=== PATIENT | female | born 1960 | race Caucasian/White ===

== ENCOUNTER 2019-03-08 07:52 | Day surgery (SDC) | payer MEDICAID ==
[2019-02-19 08:39] VITALS: BP 148/75; PULSE 105
[2019-03-08] VITALS (10 sets, daily range): BP systolic 102–134; BP diastolic 60–95; PULSE 57–71; TEMP 97.3–98
[~2019-03-08] VITALS: Ht 170.2 cm; Wt 45.9 kg
[2019-03-08 08:29] LABS: HEMATOCRIT 37.2 % (37.0-47.0); HEMOGLOBIN 12.1 g/dl (12.5-16.0); MEAN CELL VOLUME 96 fl (80.0-100.0); MEAN CORPUSCULAR HEMOGLOBIN 31 pg (27.0-31.0); MEAN CORPUSCULAR HGB CONC 33 g/dl (33.0-37.0); PLATELET COUNT 319 K/mm3 (130-400); RED BLOOD COUNT 3.87 M/mm3 (4.10-5.30); REDCELL DISTRIBUTION WIDTH-CV 13.9 % (11.5-14.5)
[2019-03-08 08:34] LABS: PROTHROMBIN TIME 11.1 SECONDS (9.7-12.8)
[2019-03-08 08:41] LABS: CALCIUM 10.2 mg/dL (8.4-10.2); CREATININE, serum 0.81 (0.52-1.25); POTASSIUM 4.4 mmol/L (3.4-5.0)
[2019-03-08] MEDS ORDERED: ASPIRIN E.C. 8181 MG PO (09:49)
[2019-03-08] MEDS ORDERED: COLACE 100100 MG/CAP PO (09:50)
[2019-03-08] MEDS ORDERED: MELATIN 3 MG-11 TAB PO (09:51)
[2019-03-08] MEDS ORDERED: PEPCID 20MG TAB20 MG PO (09:51)
[2019-03-08] MEDS ORDERED: PRISTIQ100 MG PO (09:52)
[2019-03-08] MEDS ORDERED: THERA1 TAB PO (09:54)
[2019-03-08] MEDS ORDERED: LAMICTAL150 MG PO (09:54)
[2019-03-08] MEDS ORDERED: ATIVAN 1MG T1 MG/TAB PO (10:07)
[2019-03-08] MEDS ORDERED: SEROQUEL 1100 MG/TAB PO (10:09)
[2019-03-08] MEDS ORDERED: TYLENOL 8 HR PO (10:11)
[2019-03-08] MEDS ORDERED: BUSPAR10 MG PO (10:12)
--- NOTE | 2019-03-08 10:12 | NUR ---
SISTER VERBALIZED UNCERTAINITY WITH THE ABLASION BEING COMPLETED Scar MCDANIELS RN. NURSE SPOKE WITH DR. EDMONDSON REGARDING THESE CONCERNS. I DISCUSSED OPTIONS WITH THE SISTER TO RECEIVE A SECOND OPINION. WE ALSO DISCUSS COMPLICATIONS AND THE RISK OF THE PROCEDURE NOT BEING SUCCESSFUL. THE SISTER MORAIMA VERBALIZED SHE UNDERSTAND ALL THE RISK AND BENEFITS AND THAT SHE WISHES TO CONTINUE WITH THE PROCEDURE. SHE IS AWARE OF RISKS OF NOT MOVING FORWARD WITH ANY PROCEDURES AND SHE MAY LOSS HER LEG. MORAIMA ALSO VERBALIZED THE PATIENT IS IN PAIN AND WANTS HER TO GET WELL. SHE WISHES TO PROCEED WITH THE PLAN OF THE ABLASION, Scar MCDANIELS RN WAS PRESENT WITH THIS DISCUSSION.
[2019-03-08] MEDS ORDERED: MIRALAX PA17 GM/Dose PO (10:58)
--- NOTE | 2019-03-08 15:45 | NUR ---
Back from PACU. Answer "uh huh" when asked a question but does not want to open eyes. VSS. Dressing to left leg soft roll and coban CD&I.
--- NOTE | 2019-03-08 16:45 | NUR ---
This RN took verbal and bedside report from [facility] in [facility] Unit.
--- NOTE | 2019-03-08 17:00 | NUR ---
Sister, Sabrina, at bedside.
--- NOTE | 2019-03-08 18:00 | NUR ---
Applied mouth moisturizer to mouth with swab. Pt drinking water with no N/V. Wash cloth applied to face to assist with awakening the pt up more.
--- NOTE | 2019-03-08 18:30 | NUR ---
Mouth moisturizer applied to pt's mouth with swab. Encouraged pt to drink water and pt responding to having her faced washed with a wash cloth.
--- NOTE | 2019-03-08 19:30 | NUR ---
[facility]ail[facility] with [facility] here with another aid to transport pt back to [facility]. [facility] James and this RN transferred pt to [facility]. Pt's depend was soiled and changed at this time. Pt tolerated pudding for intake with no N/V. Report was given to [facility] at the [facility]. [facility] Patterson aware. IV was discontinued with catheter tip intact, no phlebitis or infiltration. Pt was transfered via [facility] with KRISTY Linton and additional aid. Pt's sister was at her side with discharge instructions in hand. Pt's sister was also given discharge instructions. Pt's sister, Sabrina, aware. This RN did call Dr. Khan to make him aware that the pt was not on Eliquis and will need a prescription. Dr. Marie wrote prescription and copy made for medical records. Dr. Khan also stated he would like the dressing to remain on the pt's left leg until Monday. Pt will then gather direction for further wound care from wound care nurse on Monday. PHU Patterson and Sabrina aware.
== END 2019-03-08 19:45 ==
LOC: SDCO
PROVIDERS: Internal Medicine Interventional Cardiology
DX: I83.029 Varicose veins of left lower extremity with ulcer of unspecified site (principal); K21.9 Gastro-esophageal reflux disease without esophagitis; G43.909 Migraine, unspecified, not intractable, without status migrainosus; F32.9 Major depressive disorder, single episode, unspecified; F41.9 Anxiety disorder, unspecified; F03.90 Unspecified dementia, unspecified severity, without behavioral disturbance, psychotic disturbance, mood disturbance, and anxiety; Z79.82 Long term (current) use of aspirin
CPT/HCPCS: C1769; J2060; J2704; J7030